=== PATIENT | female | born 1965 | race Caucasian/White ===

== ENCOUNTER 2020-10-14 08:28 | Emergency (ER) | payer OTHER, SELFPAY ==
--- NOTE | ~2020-10-14 | CT_ITS ---
EXAMINATION: CT ANGIOGRAM OF THE CHEST WITH AND WITHOUT CONTRAST (CT PULMONARY ANGIOGRAM FOR PE) CLINICAL INFORMATION: Hemoptysis COMPARISON: Chest x-ray 10/26/2015 TECHNIQUE: Prior to contrast administration, noncontrast localization images were obtained. Subsequently, multidetector volumetric imaging was performed from the thoracic inlet to below the diaphragms following the administration of 65 mL Omnipaque 350 intravenous contrast. No contrast reaction reported Sagittal, coronal, and MIP oblique sagittal reformatted images were obtained on the CT workstation, uploaded to PACS, and reviewed. This CT examination was performed using dose optimization techniques as appropriate, variously including the following: *Automated exposure control *Adjustment of mA and/or kV according to patient size (this includes techniques or standardized protocols for targeted exams where dose is matched to indication/reason for exam; i.e. extremities or head) *Use of iterative reconstruction technique Total exam dose-length product 255 mGy-cm FINDINGS: QUALITY OF STUDY/CONTRAST BOLUS: Satisfactory. PULMONARY ARTERIES: No evidence of filling defects to suggest central or segmental pulmonary emboli. THORACIC AORTA: Normal caliber aorta. LUNG: Moderate centrilobular emphysematous changes. There is longitudinal/tubular branching soft tissue density in the right upper lobe, which appears to be related to density within the right upper lobe bronchus (image [id number]). This could represent mucous plugging or neoplasm. Further evaluation is recommended. Right upper lobe 8 mm nodule, 8:113. Right lower lobe 4 mm nodule, 8:300; left lower lobe 4 mm nodule 8:257 PLEURA: No pleural effusion or pneumothorax. MEDIASTINUM: Normal heart size. No pericardial effusion. No hilar or mediastinal lymphadenopathy. No evidence of septal bowing or right heart strain. CHEST WALL/AXILLA: No axillary or internal mammary lymphadenopathy. OSSEOUS STRUCTURES: Thoracic spine degenerative changes. No acute or suspicious osseous abnormality. UPPER ABDOMEN: Slightly bulky appearance of the left adrenal gland. Right adrenal gland appears unremarkable. No reflux of contrast into the hepatic veins to suggest elevated right heart pressures. CT/CT angio chest PE protocol IMPRESSION: 1. No evidence of filling defects to suggest central or segmental pulmonary emboli. 2. Soft tissue density with a longitudinal tubular branching configuration, which appears related to soft tissue density within the right upper lobe bronchus. Differential considerations include neoplasm, mucous plugging. Further workup, evaluation is recommended. 3. Multiple pulmonary nodules noted, larger measuring 8 mm. Differential consideration include metastatic disease. Depending on the etiology of the abnormality in the right upper lobe bronchus, further evaluation with PET CT/biopsy can be obtained at this stage. Alternately, recommendations for nodules would be: According to the UPDATED 2017 Fleischner Society recommendations, the advised follow-up imaging for multiple solid nodules, the largest measuring 6 mm or greater, is: LOW RISK PATIENT: CT at 3-6 months, then consider CT at 18-24 months. HIGH RISK PATIENT: CT at 3-6 months, then at 18-24 months. 4. Slightly bulky appearance of the left adrenal gland. VTE: Negative This critical result was discussed with Dr. Livingston at 11:29 AM on 10/14/2020 and it was ascertained that the content and urgency of the report was understood at the time of direct communication.
--- NOTE | 2020-10-14 08:39 | ED.GENADULT ---
HPI - General Adult General Chief complaint: Upper Respiratory Symptoms Stated complaint: coughing up blood Time Seen by Provider: 10/14/20 08:38 Source: patient Mode of arrival: ambulatory Limitations: no limitations History of Present Illness HPI narrative: 55 yo female no AC therapy, no ASA comes in with coughing 3 to 4 times then noted forceful coughing that resulted in episodes of scant hemoptysis but also a clot 1cm in size, no prior episodes of this she does smoke regularly complaint: hemoptysis Onset (ago): hour(s) (couple) Location: chest Radiation: non-radiation Severity: moderate Relieving factors: none Exacerbating factors: other (coughing) Associated symptoms: other (hemoptysis) Treatments prior to arrival: none Related Data Allergies Allergy/AdvReac Type Severity Reaction Status Date / Time aspirin [ASPIRIN] Allergy Unknown DIFFICULTY Unverified 03/07/20 17:04 BREATHING/RASH bee pollen [BEE STINGS] Allergy Unknown ANAPHYLAXIS Unverified 03/07/20 17:04 egg [EGG] Allergy Unknown UNKNOWN Unverified 03/07/20 17:04 erythromycin base Allergy Unknown RASH Unverified 03/07/20 17:04 [ERYTHROMYCIN BASE] etodolac [From LODINE] Allergy Unknown DIFFICULTY Unverified 03/07/20 17:04 BREATHING/RASH levofloxacin [From LEVAQUIN] Allergy Unknown RASH Unverified 03/07/20 17:04 zolmitriptan [From ZOMIG] AdvReac Intermediate AGGRESSIVE Unverified 03/07/20 17:04 naproxen [NAPROXEN] AdvReac Unknown GI UPSET Unverified 03/07/20 17:04 nicotine AdvReac Unknown RASH/HEADACHE Unverified 03/07/20 17:04 (NICOTINE PATCH) Review of Systems Review of Systems: Constitutional : No Fever, No Chills ENT/Mouth : No sore throat, No Rhinorrhea, No Swallowing Difficulty Eyes: No Eye Pain, No Swelling, No Redness Cardiovascular : No Chest Pain, no SOB, No Orthopnea, noEdema Respiratory : pos Cough, No Sputum, No Wheezing, no dyspnea Gastrointestinal : No Nausea, No Vomiting, No Diarrhea, No abdominal Pain, No Hematochezia, No Melena Genitourinary : No Dysuria, No Urinary Frequency, No Hematuria Musculoskeletal : No joint pain, No Myalgias Skin : No Skin Lesions, No rash Neuro : No Weakness, No Numbness, No Dizziness, No Headache Psych : No Anxiety/Panic, No Depression Heme/Lymph: No Bruising, No Lymphadenopathy Endocrine : No Polyuria, No Polydipsia All other systems reviewed and are negative [facility] Past Medical History Attestation statement: The following information was validated with the patient. Medical History No known health problems Social History Social History (Updated 10/14/20 @ 08:55 by Zhanna Livingston DO) Alcohol intake: never Smoking Status: Current every day smoker Use of substances other than those prescribed or required for medical reasons: No Advance Directives: No Advance Directives Information Provided: No Physical Exam Vital Signs: Vital Signs: Last Vital Signs Temp 98.7 F 10/14/20 08:40 Pulse 111 H 10/14/20 08:40 Resp 18 10/14/20 08:40 BP 140/97 H 10/14/20 08:40 Pulse Ox 98 10/14/20 08:40 Body Mass Index 24.1 Appearance: Alert. Oriented X3. No acute distress. Anxious Eyes: Pupils equal, round and reactive to light. ENT: Pharynx normal. Neck: Normal inspection. Neck supple. CVS: tachycardic heart rate and rhythm. Pulses normal. Respiratory: No respiratory distress. Breath sounds normal. Abdomen: Soft and nontender. Skin: Skin warm and dry. Normal skin color. Normal skin turgor. Extremities: No lower extremity edema. No calf ttp Neuro: Oriented X 3. No motor deficit. No sensory deficit. Course Course Course Narrative: discussed with Dr. Cortes send off lupus anticoagulant, has had stable VS no further hemoptysis in 5.5 hours discussing okay for safe DC which I suspect [place] [facility] [place] up with them and pulmonology aware she needs bronch to assess lesion, no other reports of bleeding at this time can be DC home at this time with precautions Medical Decision Making MDM Narrative Medical decision making narrative: 55 yo female heavy smoker here with hemoptysis after coughing could be self limited cap rupture vs bronchitis vs PE vs mass - at this time will need labs, CT scan to r/o PE vs mass - basic labs, dispo per results and findings. Lab Data Result diagrams: 10/14/20 09:02 10/14/20 09:02 Labs: Lab Results 10/14/20 10/14/20 10/14/20 Range/Units 09:02 09:02 09:02 WBC 4.7 L (4.8-10.8) X10*3/uL RBC 4.30 (4.20-5.50) X10*6/uL Hgb 13.0 (12.0-16.0) g/dl Hct 39.3 (37-47) % MCV 91.4 (80-98) fL MCH 30.2 (27.0-33.0) pg MCHC 33.1 (31.0-35.0) g/dl RDW 13.1 (11.0-16.0) % Plt Count 239 (160-400) X10*3/uL MPV 9.6 (9.4-12.3) fL Immature Gran % (Auto) 0.2 (0.0-0.4) % Neut % (Auto) 65.6 (45-73) % Lymph % (Auto) 22.6 (20-40) % [place] % (Auto) 9.5 (2-11) % Eos % (Auto) 1.7 (0-4) % Baso % (Auto) 0.4 (0-2) % Lymph # (Auto) 1.1 L (1.2-4.9) X10*3/uL [place] # (Auto) 0.5 (0.1-1.2) X10*3/uL Eos # (Auto) 0.1 (0.0-0.4) X10*3/uL Baso # (Auto) 0.0 (0.0-0.2) X10*3/uL Abs Immat Gran (auto) 0.01 (0.00-0.03) X10*3/uL Absolute Neuts (auto) 3.1 (2.0-8.3) X10*3/uL Absolute Nucleated RBC 0.000 (0.0-0.012) X10*3/uL Nucleated RBC % (auto) 0.0 (0.0-0.2) /100WBC PT (10.8-13.0) SEC INR (0.9-1.1) APTT 73.0 H* (24.1-38.0) SEC Sodium 141 (135-145) mmol/L Potassium 4.0 (3.3-5.1) mmol/L Chloride 105 (96-108) mmol/L Carbon Dioxide 27 (22-29) mmol/L Anion Gap 13 (12-20) BUN 9 (9-16) mg/dL Creatinine 0.80 (0.5-1.4) mg/dL Estim Creat Clear Calc 73.1 Estimated GFR > 60 Random Glucose 104 (60-115) mg/dL Lactic Acid (0.5-2.0) mmol/L Calcium 9.5 (8.4-10.2) mg/dL Magnesium 2.2 (1.6-2.6) mg/dL Total Bilirubin 0.5 (0.0-1.0) mg/dL Direct Bilirubin < 0.2 (0.0-0.5) mg/dL AST 15 (5-31) U/L ALT 10 (0-31) U/L Alkaline Phosphatase 76 (39-117) U/L B-Natriuretic Peptide (<100) pg/mL Total Protein 6.8 (6.5-8.0) g/dL Albumin 4.6 (3.5-5.0) g/dL COVID-19 (RICARDO) (Negative) COVID-19 Clin Com 10/14/20 10/14/20 10/14/20 Range/Units 09:02 09:02 09:02 WBC (4.8-10.8) X10*3/uL RBC (4.20-5.50) X10*6/uL Hgb (12.0-16.0) g/dl Hct (37-47) % MCV (80-98) fL MCH (27.0-33.0) pg MCHC (31.0-35.0) g/dl RDW (11.0-16.0) % Plt Count (160-400) X10*3/uL MPV (9.4-12.3) fL Immature Gran % (Auto) (0.0-0.4) % Neut % (Auto) (45-73) % Lymph % (Auto) (20-40) % [place] % (Auto) (2-11) % Eos % (Auto) (0-4) % Baso % (Auto) (0-2) % Lymph # (Auto) (1.2-4.9) X10*3/uL [place] # (Auto) (0.1-1.2) X10*3/uL Eos # (Auto) (0.0-0.4) X10*3/uL Baso # (Auto) (0.0-0.2) X10*3/uL Abs Immat Gran (auto) (0.00-0.03) X10*3/uL Absolute Neuts (auto) (2.0-8.3) X10*3/uL Absolute Nucleated RBC (0.0-0.012) X10*3/uL Nucleated RBC % (auto) (0.0-0.2) /100WBC PT 12.4 (10.8-13.0) SEC INR 1.0 (0.9-1.1) APTT (24.1-38.0) SEC Sodium (135-145) mmol/L Potassium (3.3-5.1) mmol/L Chloride (96-108) mmol/L Carbon Dioxide (22-29) mmol/L Anion Gap (12-20) BUN (9-16) mg/dL Creatinine (0.5-1.4) mg/dL Estim Creat Clear Calc Estimated GFR Random Glucose (60-115) mg/dL Lactic Acid 1.3 (0.5-2.0) mmol/L Calcium (8.4-10.2) mg/dL Magnesium (1.6-2.6) mg/dL Total Bilirubin (0.0-1.0) mg/dL Direct Bilirubin (0.0-0.5) mg/dL AST (5-31) U/L ALT (0-31) U/L Alkaline Phosphatase (39-117) U/L B-Natriuretic Peptide 22 (<100) pg/mL Total Protein (6.5-8.0) g/dL Albumin (3.5-5.0) g/dL COVID-19 (RICARDO) (Negative) COVID-19 Clin Com 10/14/20 10/14/20 Range/Units 09:20 12:12 WBC (4.8-10.8) X10*3/uL RBC (4.20-5.50) X10*6/uL Hgb (12.0-16.0) g/dl Hct (37-47) % MCV (80-98) fL MCH (27.0-33.0) pg MCHC (31.0-35.0) g/dl RDW (11.0-16.0) % Plt Count (160-400) X10*3/uL MPV (9.4-12.3) fL Immature Gran % (Auto) (0.0-0.4) % Neut % (Auto) (45-73) % Lymph % (Auto) (20-40) % [place] % (Auto) (2-11) % Eos % (Auto) (0-4) % Baso % (Auto) (0-2) % Lymph # (Auto) (1.2-4.9) X10*3/uL [place] # (Auto) (0.1-1.2) X10*3/uL Eos # (Auto) (0.0-0.4) X10*3/uL Baso # (Auto) (0.0-0.2) X10*3/uL Abs Immat Gran (auto) (0.00-0.03) X10*3/uL Absolute Neuts (auto) (2.0-8.3) X10*3/uL Absolute Nucleated RBC (0.0-0.012) X10*3/uL Nucleated RBC % (auto) (0.0-0.2) /100WBC PT (10.8-13.0) SEC INR (0.9-1.1) APTT 79.0 H* (24.1-38.0) SEC Sodium (135-145) mmol/L Potassium (3.3-5.1) mmol/L Chloride (96-108) mmol/L Carbon Dioxide (22-29) mmol/L Anion Gap (12-20) BUN (9-16) mg/dL Creatinine (0.5-1.4) mg/dL Estim Creat Clear Calc Estimated GFR Random Glucose (60-115) mg/dL Lactic Acid (0.5-2.0) mmol/L Calcium (8.4-10.2) mg/dL Magnesium (1.6-2.6) mg/dL Total Bilirubin (0.0-1.0) mg/dL Direct Bilirubin (0.0-0.5) mg/dL AST (5-31) U/L ALT (0-31) U/L Alkaline Phosphatase (39-117) U/L B-Natriuretic Peptide (<100) pg/mL Total Protein (6.5-8.0) g/dL Albumin (3.5-5.0) g/dL COVID-19 (RICARDO) Negative (Negative) COVID-19 Clin Com See Note ECG Data Attestation: I personally reviewed and interpreted this ECG as follows: Interpretation: Rate: 101 Rhythm: sinus tachycardia [place]: normal Normal P waves. Normal [place]. Normal QRS complex. ST T wave : nonspecific, no REMI qTC: normal prior studies: no acute ischemia The study has been interpreted contemporaneously by me. . Discharge Plan Discharge Clinical Impression: Hemoptysis, Pulmonary nodule Patient Disposition: Home, Self-Care Instructions: Hemoptysis (ED), Pulmonary Nodules (ED) Additional Instructions: return to ED for any worsening symptoms or concerns there is a lesion in your right upper lobe bronchus this needs to be assessed and biopsied for possible malignancy this is serious please do not take blood thinners or aspirin, decrease forceful coughing call your doctor as soon as possible there is a pending lupus anticoagulant test that may take a day or two to result Stand Alone Forms: Work/School Release
[2020-10-14 08:40] VITALS: BP 140/97; PULSE 111; RESP 18; TEMP 37.1; O2SAT 98; BMI 24.1
--- NOTE | 2020-10-14 08:46 | ECG_ITS ---
Test Reason : SOB Blood Pressure : / mmHG Vent. Rate : 101 BPM Atrial Rate : 101 BPM P-R Int : 124 ms QRS Dur : 080 ms QT Int : 348 ms P-R-T Axes : 069 047 056 degrees QTc Int : 451 ms Sinus tachycardia Otherwise normal ECG When compared with ECG of 09-NOV-2014 19:42, No significant change was found Referred By: Zhanna Livingston Electronically Signed By:ALY TAVAREZ MD
[2020-10-14 09:10] LABS: MANUAL DIFF FLAG NO
[2020-10-14 09:11] LABS: Basophils Percent Auto 0.4 % (0-2); Eosinophils Absolute Auto 0.1 X10*3/uL (0.0-0.4); Eosinophils Percent Auto 1.7 % (0-4); Hematocrit 39.3 % (37-47); Imm Gran Abs Auto 0.01 X10*3/uL (0.00-0.03); Imm Gran Pct Auto 0.2 % (0.0-0.4); Lymphocytes Absolute Auto 1.1 X10*3/uL (1.2-4.9); Lymphocytes Percent Auto 22.6 % (20-40); Mean Corpuscular HGB Conc 33.1 g/dl (31.0-35.0); Mean Corpuscular Hemoglobin 30.2 pg (27.0-33.0); Mean Corpuscular Volume 91.4 fL (80-98); Mean Platelet Volume 9.6 fL (9.4-12.3); Monocytes Absolute Auto 0.5 X10*3/uL (0.1-1.2); Monocytes Percent Auto 9.5 % (2-11); Neutrophils Absolute Auto 3.1 X10*3/uL (2.0-8.3); Neutrophils Percent Auto 65.6 % (45-73); Platelet Count 239 X10*3/uL (160-400); Red Cell Distribution Width 13.1 % (11.0-16.0); White Blood Count 4.7 X10*3/uL (4.8-10.8)
[2020-10-14 09:18] LABS: Prothrombin Time 12.4 SEC (10.8-13.0)
--- NOTE | 2020-10-14 09:34 | PC.NURSE ---
iv established, blood labs obtained and sent, ambulated w steady gait to restroom. awaiting ct scan.
[2020-10-14 09:43] LABS: Lactic Acid 1.3 mmol/L (0.5-2.0)
[2020-10-14 09:48] LABS: Alanine Aminotransferase 10 U/L (0-31); Albumin Level 4.6 g/dL (3.5-5.0); Alkaline Phosphatase 76 U/L (39-117); Anion Gap 13 (12-20); Aspartate Amino Transferase 15 U/L (5-31); Bilirubin Direct < 0.2 mg/dL (0.0-0.5); Bilirubin Total 0.5 mg/dL (0.0-1.0); Blood Urea Nitrogen 9 mg/dL (9-16); Calcium 9.5 mg/dL (8.4-10.2); Carbon Dioxide 27 mmol/L (22-29); Chloride 105 mmol/L (96-108); Creatinine Clr Calc Pharmacy 73.1; Estimated Glomerular Filt Rate > 60; Glucose Random 104 mg/dL (60-115); Magnesium 2.2 mg/dL (1.6-2.6); Sodium 141 mmol/L (135-145); Total Protein 6.8 g/dL (6.5-8.0)
[2020-10-14 09:52] LABS: B Type Natriuretic Peptide 22 pg/mL (<100)
--- NOTE | 2020-10-14 10:01 | PC.NURSE ---
pt ambulated to and from ct scan w steady gait.
[2020-10-14] MEDS: iohexoL 350 MG/ML 100 ML INFUS..BTL IV (10:30)
--- NOTE | 2020-10-14 12:18 | PC.NURSE ---
repeat labs drawn and sent, pt expresses feeling nervous about work up results, this rn reassuring pt that md will come and explain all results in detail w pt once all tests have returned. wctm.
[2020-10-14 12:51] LABS: COVID-19 Test Negative (Negative); IDNOW Serial# 9DD0AD1C
[2020-10-15 14:01] LABS: DRVVT 1:1 Mix NOT CORRECTED (CORRECTED); DRVVT Confirmation POSITIVE (NEGATIVE); Hexagonal Phase Neutralization POSITIVE (NEGATIVE); PTT (LAC) Screen 57 sec (< OR = 40); Thrombin Clotting Time 16 sec (13-19)
== END 2020-10-14 13:27 | disposition home or self-care (01) ==
PROVIDERS: Emergency Provider Emergency Medicine; PCP Internal Medicine
DX: R05 Cough (principal); R91.1 Solitary pulmonary nodule; F17.200 Nicotine dependence, unspecified, uncomplicated; Z20.822 Contact with and (suspected) exposure to COVID-19; Z71.6 Tobacco abuse counseling
CPT/HCPCS: 36415; 71275; 80048; 80076; 83605; 83735; 83880; 85025; 85597; 85610; 85613; 85730; 87040; 87635; 93005; 99285; Q9967